=== PATIENT | male | born 1965 | race Caucasian/White ===

== ENCOUNTER → 2019-12-02 10:24 | Outpatient (BNVA) | payer OTHER, SELFPAY | PROVIDERS: Visit Provider Nurse Practitioner Family | DX: R53.83 Other fatigue (principal); R55 Syncope and collapse; R51 Headache; H53.9 Unspecified visual disturbance; Z98.1 Arthrodesis status | CPT/HCPCS: 36416; 80053; 82962; 83036; 84443; 85025 ==

== ENCOUNTER → 2023-11-16 10:24 | Outpatient (BNVA) | payer MEDICAID, SELFPAY | PROVIDERS: Referring Provider Nurse Practitioner Family; Visit Provider Physician Assistant | DX: M75.41 Impingement syndrome of right shoulder | CPT/HCPCS: 73030 ==

== ENCOUNTER → 2024-01-08 08:11 | Outpatient (BNVA) | payer MEDICAID, SELFPAY | PROVIDERS: PCP Nurse Practitioner Family; Visit Provider Orthopaedic Surgery | DX: M54.2 Cervicalgia (principal); M54.50 Low back pain, unspecified | CPT/HCPCS: 72050; 72110 ==

== ENCOUNTER 2024-01-25 09:21 | Outpatient (CLI) | payer MEDICAID, SELFPAY ==
--- NOTE | 2024-01-25 09:30 | MR_ITS ---
WS: [id number] MRI CERVICAL SPINE NONCONTRAST TECHNIQUE: Sagittal T1, T2 and STIR imaging. Axial T2, gradient, and fiesta imaging. CLINICAL INFORMATION: neck pain COMPARISON: None. FINDINGS: Straightening of the normal cervical lordosis. Prior postoperative changes ACDF C4-5. Disc bulging wo rse at C3-4 with Indentation on the cervical cord C2-C3: Mild facet arthropathy. Mild RIGHT and no significant LEFT foraminal narrowing. Spinal canal i s patent. C3-C4: RIGHT paracentral disc osteophyte complex with indentation and flattening of the cervical cord . 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 Moderate facet arthropathy. Mild LEFT greater than RIGHT bony foraminal narrowing. C4-C5: ACDF. Mild bilateral bony foraminal narrowing LEFT greater than RIGHT. Spinal canal is patent. Mild facet arthropathy. C5-C6: ACDF. Mild RIGHT foraminal narrowing. LEFT foramen is patent. Mild central canal stenosis. Mil d facet arthropathy. C6-C7: Moderate LEFT and mild RIGHT bony foraminal narrowing. Mild facet arthropathy. Spinal canal is patent. C7-T1: Mild LEFT and no significant RIGHT foraminal narrowing. Spinal canal is patent. Visualized brain stem structures: Normal. Prevertebral soft tissues: Normal. MR/MR cervical spin wo con* [id number] IMPRESSION: 1. Straightening of the normal cervical lordosis. Prior ACDF C4-5. 2. Disc osteophyte complex C3-C4 with indentation and flattening of the cervic al cord with moderate to severe central canal stenosis. Myelomalacia in the cer vical cord at this level. 3. Mild central canal stenosis C5-6. 4. Mild to moderate bony foraminal narrowing bilateral C3-4 and moderate LEFT C6-7
== END 2024-01-25 09:22 | disposition home or self-care (01) ==
LOC: RAD 09:22
PROVIDERS: PCP Nurse Practitioner Family; Visit Provider Orthopaedic Surgery
DX: M50.01 Cervical disc disorder with myelopathy, high cervical region (principal); M25.78 Osteophyte, vertebrae; M48.02 Spinal stenosis, cervical region; M47.892 Other spondylosis, cervical region; M99.61 Osseous and subluxation stenosis of intervertebral foramina of cervical region; M43.22 Fusion of spine, cervical region
CPT/HCPCS: 72141

== ENCOUNTER 2024-06-05 09:35 | Outpatient (CLI) | payer OTHER, MEDICAID, SELFPAY ==
--- NOTE | 2024-06-05 10:05 | NM_ITS ---
WS: [id number] NUCLEAR MEDICINE HIDA SCAN CLINICAL INFORMATION: RUQ PAIN TECHNIQUE: Following intravenous administration of 8.1 mCi of technetium 99m mebrofenin, images of th e abdomen were obtained over the course of 60 minutes. Next, gallbladder ejection fraction was determ ined by obtaining preprandial and one-hour postprandial images of the gallbladder following oral samy stion of Ensure. FINDINGS: Normal hepatic uptake at 5 minutes. Gallbladder is visualized by 20 minutes. No evidence of acute cho lecystitis. Normal common bile duct and small bowel activity. Normal hepatic excretion. Gallbladder ejection fraction 85% within normal limits. No evidence of chronic cholecystitis. NM/NM hepatobiliary w phar* [id number] IMPRESSION: 1. No evidence of acute or chronic cholecystitis. 2. Normal gallbladder ejection fraction 85% within normal limits.
== END 2024-06-05 09:36 | disposition home or self-care (01) ==
PROVIDERS: PCP Nurse Practitioner Family; Visit Provider Nurse Practitioner Family
DX: R10.11 Right upper quadrant pain (principal)
CPT/HCPCS: 78227; A9537